=== PATIENT | male | born 1995 | race African-American/Black ===

== ENCOUNTER 2024-12-03 02:27 | Day surgery (SDC) | payer OTHER ==
[~2024-12-03] VITALS: Ht 185.4 cm; Wt 128.0 kg
[2024-12-03] VITALS (204 sets, daily range): BP systolic 96–184; BP diastolic 54–112
[~2024-12-03 02:27] MED LIST: SODIUM CHLORIDE 0.9% 1,000 ML IV PRN
[2024-12-03] MEDS ORDERED: DEXMEDETOMIDINE HCL IN SODIUM 100 ML IV PRN (07:10)
[2024-12-03] MEDS ORDERED: CYANOCOBALAMIN 500 MCG/TAB ( B12) PO PRN (07:30)
[2024-12-03] MEDS ORDERED: SCOPOLAMINE 1.5 MG DIS TD PRN (07:30)
[2024-12-03] MEDS ORDERED: PANTOPRAZOLE SODIUM Sesquihydr 40 MG/TAB PO PRN (07:30)
[2024-12-03] MEDS ORDERED: cloNIDine HCL 0.1 MG/TAB PO PRN (07:30)
[2024-12-03] MEDS ORDERED: LACTATED RINGER'S 1,000 ML IV PRN ×2 (07:30→09:35)
[2024-12-03] MEDS ORDERED: diazePAM 5 MG/TAB PO PRN ×2 (07:30→08:30)
[2024-12-03] MEDS ORDERED: ALBUTEROL SULFATE 2.5 MG VIAL IN PRN (07:30)
[2024-12-03] MEDS ORDERED: FAMOTIDINE 20 MG/TAB PO PRN (07:30)
[2024-12-03] MEDS ORDERED: ASCORBIC ACID 4,000 MG in SODIUM CHLORIDE 0.9% 1,000 ML IV SCH (08:00)
[2024-12-03 08:54] LABS: BASO% 0.4 % (0-3); HEMATOCRIT 41.7 % (39.0-50.0); HEMOGLOBIN 13.9 g/dl (14.0-18.0); IMMATURE GRANULOCYTES 0.2 % (0.0-5.0); LYMPH% 47.1 % (15-41); MEAN CELL VOLUME 86.2 fL CALC (80.0-100.0); MEAN CORPUSCULAR HGB 28.7 pG CALC (26.0-32.0); MEAN CORPUSCULAR HGB CONC 33.3 g/dL CAL (32.0-36.0); MONO% 12.8 % (2-13); NEUT# 1.54 thou/uL (1.82-7.42); NEUT% 29.5 % (42-76); RED BLOOD COUNT 4.84 mill/uL (4.70-6.10); RED CELL DISTRI WIDTH 12.3 % (11.5-15.5)
[2024-12-03 09:05] LABS: ALBUMIN 4.3 g/dL (3.2-5.0); BILIRUBIN, TOTAL 1.2 mg/dL (0.2-1.3); CREATININE 1.1 mg/dL (0.7-1.3); POTASSIUM 3.8 mmol/l (3.5-5.1); TOTAL PROTEIN 7.6 g/dL (6.3-8.2)
[2024-12-03] MEDS ORDERED: MIDAZOLAM HCL 2 MG/2 ML VIAL IV PRN ×3 (09:35→17:00)
[2024-12-03] MEDS ORDERED: PROPOFOL 100 ML IV PRN (09:35)
[2024-12-03] MEDS ORDERED: OCTREOTIDE ACETATE 100 MCG/VIAL SDV SC PRN (09:35)
[2024-12-03] MEDS ORDERED: MAGNESIUM SULFATE HEPTAHYDRATE 100 ML IV PRN (09:35)
[2024-12-03] MEDS ORDERED: diazePAM 5 MG/TAB VT PRN (09:35)
[2024-12-03] MEDS ORDERED: LIDOCAINE HCL 1% (10MG/ML) 100 MG/10 ML MDV IV PRN (09:35)
[2024-12-03] MEDS ORDERED: cloNIDine HCL 0.1 MG/TAB VT PRN (09:35)
[2024-12-03] MEDS ORDERED: PROPOFOL 10 MG/ML 100ML VIAL IV PRN (09:35)
[2024-12-03] MEDS ORDERED: STERILE WATER FOR IRRIGATION 1,000 ML BTL IR PRN (09:35)
[2024-12-03] MEDS ORDERED: ROCURONIUM BROMIDE 10 MG/ML 5 ML VIAL IV PRN (09:35)
[2024-12-03] MEDS ORDERED: NALTREXONE HCL 50 MG/TAB VT PRN (09:35)
[2024-12-03] MEDS ORDERED: LIDOCAINE HCL 1% (10MG/ML) 100 MG/10 ML MDV VT PRN ×2 (09:35)
[2024-12-03] MEDS ORDERED: THIAMINE HCL 100 MG/ML 2ML VIAL IV PRN (09:35)
[2024-12-03] MEDS ORDERED: POTASSIUM CHLORIDE 20 MEQ/100 ML BAG IV PRN (09:35)
[2024-12-03] MEDS ORDERED: ONDANSETRON HCl 4 MG/2 ML SDV IV PRN ×3 (09:35→19:00)
[2024-12-03] MEDS ORDERED: SUCCINYLCHOLINE CHLORIDE 20 MG/ML 10ML VIAL IV PRN (09:35)
[2024-12-03] MEDS ORDERED: DiphenhydrAMINE HCL 50 MG/ML SDV IV PRN (09:35)
[2024-12-03] MEDS ORDERED: cloNIDine HYDROCHLORIDE 100 MCG/ML 10 ML INJ IV PRN (09:35)
[2024-12-03] MEDS ORDERED: PROVENTIL0.083 % IN (09:38)
[2024-12-03] MEDS ORDERED: SODIUM CHLORIDE 0.9% 1,000 ML IV PRN ×2 (09:40→19:00)
[2024-12-03] MEDS ORDERED: NALTREXONE50 MG PO (13:04)
[2024-12-03] MEDS ORDERED: CLONIDINE0.1 MG PO (13:04)
[2024-12-03] MEDS ORDERED: KLONOPIN2 MG PO (13:04)
[2024-12-03] MEDS ORDERED: ACETAMINOPHEN 1,000 MG/100 ML VIAL IV PRN (19:00)
[2024-12-03] MEDS ORDERED: HALOPERIDOL LACTATE 5 MG/ML SDV IV PRN ×2 (19:00→22:50)
[2024-12-03] MEDS ORDERED: PROMETHAZINE HCL 25 MG in SODIUM CHLORIDE 0.9% 50 ML IV PRN (19:00)
[2024-12-03] MEDS ORDERED: ACETAMINOPHEN 500 MG TAB PO PRN (19:00)
[2024-12-03] MEDS ORDERED: PROMETHAZINE HCL 12.5 MG in SODIUM CHLORIDE 0.9% 50 ML IV PRN (19:00)
[2024-12-03] MEDS ORDERED: KETOROLAC TROMETHAMINE 30 MG/ML SDV IV PRN (19:00)
[2024-12-03] MEDS ORDERED: PATIENT' OWN MED CONTROLLED 1 EA DOSE IV PRN (21:00)
[2024-12-03] MEDS ORDERED: cloNIDine HCL 0.1 MG/TAB PO SCH (23:00)
[2024-12-03] MEDS ORDERED: clonazePAM 1 MG/TAB PO PRN (23:00)
[2024-12-04 03:29] VITALS: BP 139/65
[2024-12-04] MEDS ORDERED: clonazePAM 1 MG/TAB PO PRN ×2 (04:00→08:00)
[2024-12-04] MEDS ORDERED: cloNIDine HCL 0.1 MG/TAB PO PRN (04:00)
[2024-12-04] MEDS ORDERED: NALTREXONE HCL 50 MG/TAB PO SCH (04:00)
[2024-12-04 05:54] LABS: BASO% 0.2 % (0-3); HEMATOCRIT 42.1 % (39.0-50.0); HEMOGLOBIN 14.3 g/dl (14.0-18.0); IMMATURE GRANULOCYTES 0.2 % (0.0-5.0); LYMPH% 9.8 % (15-41); MEAN CELL VOLUME 85.6 fL CALC (80.0-100.0); MEAN CORPUSCULAR HGB 29.1 pG CALC (26.0-32.0); MONO% 4.9 % (2-13); NEUT# 9.27 thou/uL (1.82-7.42); NEUT% 84.9 % (42-76); RED BLOOD COUNT 4.92 mill/uL (4.70-6.10); RED CELL DISTRI WIDTH 11.9 % (11.5-15.5)
[2024-12-04 06:10] LABS: ALBUMIN 4.3 g/dL (3.2-5.0); BILIRUBIN, TOTAL 1.4 mg/dL (0.2-1.3); MAGNESIUM 2.1 mg/dL (1.6-2.3); POTASSIUM 3.8 mmol/l (3.5-5.1); TOTAL PROTEIN 7.4 g/dL (6.3-8.2)
[2024-12-04] MEDS ORDERED: ACETAMINOPHEN 325 MG/TAB PO SCH (08:00)
[2024-12-04] MEDS ORDERED: PANTOPRAZOLE SODIUM Sesquihydr 40 MG/TAB PO SCH (08:00)
[2024-12-04] MEDS ORDERED: cloNIDine HCL 0.1 MG/TAB PO SCH (08:00)
[2024-12-04 08:28] VITALS: BP 131/63
[2024-12-04] MEDS ORDERED: MAGNESIUM OXIDE 400 MG/TAB PO PRN (09:00)
[2024-12-04] MEDS ORDERED: ACETAMINOPHEN 500 MG TAB PO PRN (09:00)
[2024-12-04] MEDS ORDERED: Cholecalciferol 2,000 UNIT/TAB PO PRN (09:00)
[2024-12-04] MEDS ORDERED: POTASSIUM CHLORIDE 20 MEQ/TAB PO SCH (09:00)
== END 2024-12-04 15:15 | disposition home or self-care (01) | DRG 897 ==
LOC: MS2 02:27 → ANR 02:27
PROVIDERS: ATTEND Anesthesiology
DX: F11.20 Opioid dependence, uncomplicated (principal)
CPT/HCPCS: J1100; J1200; J1630; J2354; J2405; J2550; J2704; J3411; J3475; J3480; J3490